=== PATIENT | female | born 1940 | race Caucasian/White ===

== ENCOUNTER → 2017-01-11 09:41 | Day surgery (SDC) | payer MEDICARE, OTHER ==
[~2017-01-11 09:41] MED LIST: Acetaminophen TAB* 325 MG PO PRN; Buffered Lidocaine 1% SYRIN* 3 ML/SYR SYRINGE INTRADERM ONE; Cyclopentolate 1% OPTH.SOL* 2 ML BTL ONE; Flurbiprofen 0.03% OPTH.SOL* 2.5 ML BTL ONE; Lidocaine 1% MPF* 2 ML VIAL ONE; Lidocaine 2% EPI 1:200000 MPF* 20 ML VIAL ONE; Midazolam* 1 MG/ML 2 ML VIAL (2 MG) ONE; Neomycin/Polymy/Dex OPTH.SUSP* MAXITROL 0.1% 5 ML ONE; Phenylephrine 2.5% OPTH.SOL* 2 ML BTL ONE; Povidone Iodine 5% OPTH* 30 ML BTL ONE; Proparacaine 0.5% OPHTH.SOL* 15 ML BTL ONE; acetaZOLAMIDE TAB* 250 MG ONE
[2017-01-11 12:59] VITALS: BP 140/78
--- NOTE | 2017-01-12 00:19 | OP ---
DATE OF OPERATION: 01/11/17 [facility] DATE OF : 44 SURGEON: Yamil Swartz M.D. PREOPERATIVE DIAGNOSIS: Cataract, right eye. POSTOPERATIVE DIAGNOSIS: Cataract, right eye. OPERATIVE PROCEDURE: Phacoemulsification, right eye with IOL. DESCRIPTION OF PROCEDURE: The patient was brought to the operating room after being given 1/2% Alcaine with epinephrine drops in the preoperative area. The eye was prepped and draped in the usual sterile fashion. Sterile drape and eyelid speculum were placed. Again, topical 1/2% Alcaine with epinephrine was given. A paracentesis incision was made at the 9 o'clock position with the No.75 blade. Clear cornea incision 2.2 x 2.2-mm was created at the 12 o'clock position starting at the anterior limbus using the 2.2-mm keratome. The anterior chamber was irrigated with 0.4 mL of 1% non-preservative intracameral lidocaine and filled with DisCoVisc. A capsulorrhexis was completed using the cystotome and the Utrata forceps. Hydrodissection was performed with balanced salt solution. The lens nucleus was removed with the Phacoemulsification handpiece without incident. Cortex was removed with the irrigation-aspiration handpiece. The capsular bag was re-inflated using DisCoVisc and an [id number] 10- diopter implant was inserted with the shooter. The irrigation-aspiration handpiece was used to remove all residual DisCoVisc. The eye was refilled with balanced salt solution and the wound checked and found to be watertight. Topical Maxitrol drops were given. [id number]/[facility] #: [id number] [facility] [address] [facility]
== END | disposition home or self-care (01) ==
LOC: OREAST 09:41
PROVIDERS: ATTEND Specialist
DX: H25.811 Combined forms of age-related cataract, right eye (principal); Z79.82 Long term (current) use of aspirin
CPT/HCPCS: J2250; V2632

== ENCOUNTER 2017-07-26 15:51 | Emergency (ER) | payer MEDICARE, BC ==
[2017-07-26 16:06] VITALS: BP 132/81
[2017-07-26] MEDS ORDERED: DOXYcycline CAP(*) 100 MG PO ONE (16:38)
--- NOTE | 2017-07-26 16:45 | UC ---
General HPI - HPI Summary HPI Summary: Found tick today embedded in left upper back. tried to remove the tick but was only partially sucess full. No fever. No weakness. - History of Current Complaint Chief Complaint: Tao Stated Complaint: TICK BITE Time Seen by Provider: 07/26/17 16:26 Hx Obtained From: Patient Onset/Duration: Gradual Onset, Lasting Hours, Still Present Onset Severity: Mild Current Severity: Mild - Allergy/Home Medications Allergies/Adverse Reactions: Allergies Allergy/AdvReac Type Severity Reaction Status Date / Time Adhesive Tape Allergy Rash Verified 07/26/17 16:07 PMH/Surg Hx/FS Hx/Imm Hx Previously Healthy: Yes - Surgical History Surgical History: Yes Surgery Procedure, Year, and Place: RUPTURED APPENDIX. LENS IMPLANT- LEFT. RETINAL DETACHED RIGHT EYE - 1977, "3M [facility]" - NEEDS ORBIT XRAY TO SEE IF THERE IS ANY METAL. LEFT EYE SURGERY FOR MACULAR PUCKER. mastectomy left breast 2012. right trigger thumb - Family History Known Family History: Negative: Blood Disorder - Social History Occupation: Retired Lives: With Family Alcohol Use: None Substance Use Type: None Smoking Status (MU): Never Smoked Tobacco - Immunization History Most Recent Tetanus Shot: UTD Review of Systems Constitutional: Negative Skin: Rash - RIGHT UPPER BACK Eyes: Negative ENT: Negative Respiratory: Negative Cardiovascular: Negative Gastrointestinal: Negative Genitourinary: Negative Motor: Negative Neurovascular: Negative Musculoskeletal: Negative Neurological: Negative Is Patient Immunocompromised?: No All Other Systems Reviewed And Are Negative: Yes Physical Exam Triage Information Reviewed: Yes Appearance: Well-Appearing, No Pain Distress, Well-Nourished Vital Signs: Initial Vital Signs Temp 97.6 F 07/26/17 16:03 Pulse 76 07/26/17 16:03 Resp 12 07/26/17 16:03 BP 132/81 07/26/17 16:03 Pulse Ox 99 07/26/17 16:03 Vital Signs Reviewed: Yes Eye Exam: Normal ENT Exam: Normal ENT: Positive: Normal ENT inspection, TMs normal Dental Exam: Normal Neck exam: Normal Neck: Positive: Supple, Nontender, No Lymphadenopathy Respiratory Exam: Normal Respiratory: Positive: Chest non-tender, Lungs clear, Normal breath sounds, No respiratory distress Cardiovascular Exam: Normal Cardiovascular: Positive: RRR, No Murmur, Pulses Normal Abdominal Exam: Normal Musculoskeletal Exam: Normal Neurological Exam: Normal Psychological Exam: Normal Skin: Positive: Other - PATRIAL TICK EMBEDDED IN RIGHT SUPERIOR BACK Procedures - Procedure Summary Procedure Summary: TICK FRAGMENTS REMOVED FROM RIGHT SUPERIOR BACK WITH SPLINTER FORCEPS Course/Dx - Differential Dx - Multi-Symptom Differential Diagnoses: Other - TICK Provider Diagnoses: TICK REMOVAL WITH PROPHYLAXIS Discharge - Discharge Plan Condition: Stable Disposition: HOME Patient Education Materials: Tick Bite (ED) Referrals: Jessica Youngblood MD [Primary Care Provider] - Images Front/Back of Body, Lg ([place]): 1 - TICK HERE
== END 2017-07-26 16:46 | disposition home or self-care (01) ==
LOC: UCEAST 15:51
DX: S20.462A Insect bite (nonvenomous) of left back wall of thorax, initial encounter (principal); W57.XXXA Bitten or stung by nonvenomous insect and other nonvenomous arthropods, initial encounter; Y92.9 Unspecified place or not applicable; Z91.048 Other nonmedicinal substance allergy status
CPT/HCPCS: 99212; A9270-GY; G0463

== ENCOUNTER 2017-08-31 12:21 | Day surgery (SDC) | payer MEDICARE, BC ==
[~2017-08-31 12:21] MED LIST changes: -Acetaminophen TAB* 325 MG PO PRN; +Buffered Lidocaine 0.9% SYRIN* 5 ML/SYR SYRINGE INTRADERM ONE; -Buffered Lidocaine 1% SYRIN* 3 ML/SYR SYRINGE INTRADERM ONE; -Cyclopentolate 1% OPTH.SOL* 2 ML BTL ONE; +DiMENhydriNATE IV* 50 MG/ML VIAL IV PUSH PRN; +Famotidine IV* 10 MG/ML 2 ML (20 mg) IV ONE; -Flurbiprofen 0.03% OPTH.SOL* 2.5 ML BTL ONE; -Lidocaine 1% MPF* 2 ML VIAL ONE; -Lidocaine 2% EPI 1:200000 MPF* 20 ML VIAL ONE; -Midazolam* 1 MG/ML 2 ML VIAL (2 MG) ONE; +Morphine INJ* 2 MG/ML 1 ML CARPUJECT IV PRN; -Neomycin/Polymy/Dex OPTH.SUSP* MAXITROL 0.1% 5 ML ONE; +PROCHLORPERAZINE INJ 5 MG/ML 2 ML VIAL IV PRN; -Phenylephrine 2.5% OPTH.SOL* 2 ML BTL ONE; -Povidone Iodine 5% OPTH* 30 ML BTL ONE; -Proparacaine 0.5% OPHTH.SOL* 15 ML BTL ONE; -acetaZOLAMIDE TAB* 250 MG ONE; +fentaNYL* 50 MCG/ML 2 ML VIAL (100 MCG VIAL) IV PRN; +oxyCODONE/Acetamin 5/325 MG* TAB PO PRN
[2017-08-31] MEDS ORDERED: ceFAZolin 2 GM PREMIX (*) 2 GM/50 ML BAG IVPB ONE (12:52)
[2017-08-31] MEDS ORDERED: Famotidine IV* 10 MG/ML 2 ML (20 mg) ONE (12:52)
[2017-08-31] MEDS ORDERED: Buffered Lidocaine 0.9% SYRIN* 5 ML/SYR SYRINGE ONE (12:52)
[2017-08-31] MEDS ORDERED: KETAMINE HCL* 50 MG/ML 10 ML VIAL ONE (13:27)
[2017-08-31] MEDS ORDERED: Midazolam* 1 MG/ML 2 ML VIAL (2 MG) ONE (13:27)
[2017-08-31] MEDS ORDERED: fentaNYL* 50 MCG/ML 2 ML VIAL (100 MCG VIAL) ONE (13:27)
[2017-08-31] MEDS ORDERED: Bupivacaine 0.5% SDV PF* 30 ML VIAL ONE (14:15)
[2017-08-31] MEDS ORDERED: Propofol* 10 MG/ML 20 ML BTL IV PUSH ONE (15:56)
[2017-08-31] MEDS ORDERED: Lidocaine 2% PF * 5 ML VIAL ONE (15:56)
[2017-08-31] MEDS ORDERED: Dexamethasone IV* 4 MG/ML 1 ML (4 MG) ONE (15:57)
[2017-08-31] MEDS ORDERED: Ondansetron INJ* 2 MG/ML VIAL ONE (15:57)
[2017-08-31] MEDS ORDERED: Nitroglycerin 2% OINT* 1 GM PAK TOPICAL ONE (16:00)
[2017-08-31] MEDS ORDERED: hydrALAZINE IV* 20 MG/ML VIAL IV SLOW PU ONE (16:30)
[2017-08-31] MEDS ORDERED: hydrALAZINE IV* 20 MG/ML VIAL ONE (16:30)
[2017-08-31 18:02] VITALS: BP 149/86
--- NOTE | 2017-09-01 06:59 | OP ---
DATE OF OPERATION: 08/31/17 [facility] DATE OF : 44 SURGEON: Abdirahman Lemus MD PRISON GUARD SUPERVISOR: JOSE Morel ANESTHESIOLOGIST: Juan Mancera MD ANESTHESIA: General endotracheal anesthesia. PRE-OP DIAGNOSES: 1. Right second metatarsophalangeal joint dislocation. 2. Right third metatarsophalangeal joint dislocation. 3. Right fourth metatarsal fracture. POST-OP DIAGNOSES: 1. Right second metatarsophalangeal joint dislocation. 2. Right third metatarsophalangeal joint dislocation. 3. Right fourth metatarsal fracture. 4. Right second metatarsal fracture. OPERATIVE PROCEDURE: 1. Right second MTP joint dislocation, open reduction and internal fixation. 2. Right third MTP joint dislocation, open reduction and internal fixation. 3. Right second metatarsal fracture, open reduction and internal fixation. 4. Right fourth metatarsal closed treatment. INDICATIONS: Ms. Woodruff is a very pleasant 76-year-old woman, who injured herself in [facility] about 1 month ago on vacation. She does have neuropathy so the pain was never that bad, but she did have significant swelling and bruising. When she came back to the [facility], she has been having low- level 2/10 pain persistently in the right forefoot along with swelling and bruising. She did see her primary care physician, who referred her over to me when she was found to have dislocations and fractures in the right forefoot. Ms. Woodruff and I had a very long discussion regarding this diagnosis and her treatment options including the long discussion about nonoperative and operative treatment options. We did discuss the nature and risks of surgery in careful detail in the office as well as in the preoperative holding area. This discussion included the risks of surgery, which included but were not limited to , infection, recurrent dislocation, wound problems, nerve injury, neuroma, RSD, persistent problems, need for further surgery, loss of a toe, and even remote catastrophic complication such as loss of limb or . IMPLANTS: Two 0.062 K-wires. TOURNIQUET TIME: Less than 1 hour with a well-padded ankle Esmarch tourniquet. SPECIMENS: None. ESTIMATED BLOOD LOSS: Minimal. COMPLICATIONS: None. STATUS: Stable from the operating room to the recovery room and then home. DESCRIPTION OF PROCEDURE: The patient was seen in the preoperative holding unit and informed written consent was obtained. The appropriate extremity was marked. The patient was then brought to the operating room and carefully positioned on the operating room table. Anesthesia was induced. An attempt was made at closed reduction of the MTP joint dislocations and I used fluoroscopy to assist in this. Unfortunately, as I expected, given the chronicity of the dislocations, I was unavailable to perform a closed reduction. Therefore, the decision was made to move forward with the open reduction. At this time, a chlorhexidine based pre-scrub was performed followed by a standard ChloraPrep and draped in sterile fashion. A surgical safety pause was then conducted in which we confirmed the appropriate patient, extremity, planned procedure, availability of equipment, indication, and administration of prophylactic antibiotics, and DVT prophylaxis in the form of compression boot on the nonsurgical extremity. We began by placing an ankle Esmarch tourniquet. Then, an incision was made overlying the second and third metatarsal shaft up to the MTP joints. I dissected down to expose the second and third MTP joints. In the second MTP joint, it was noticed that it was actually a fracture of the second metatarsal head. There was some gouging of the second metatarsal head cartilage as well likely from the dislocation and persistent dislocation for a month. The third metatarsal head was intact. On the third metatarsal, however, the extensor tendons were contracted and preventing reduction, so the EDL was lengthened in a Z lengthening fashion. The EDB was incised. At this time, we were able to get both joints reduced and a 0.062 K-wire was placed into the second toe and then third toe. At the second MTP joint, the K-wire was used to catch the fractured metatarsal head and then pass into the second metatarsal shaft thus keeping both the MTP joint reduced as well as fixing the metatarsal fracture in place. The third MTP joint was then reduced and the pin was placed into the metatarsal shaft as well. Fluoroscopy was utilized to confirm reduction as well as direct visualization. The tourniquet was then let down to make sure that blood flow was maintained to the toes. Meticulous hemostasis was performed. The third toe pinked right up, but the second toe was little sluggish, so some nitro paste was placed on to the second toe, at which point it pinked up quite quickly. The wound was copiously irrigated and then closed in a layered fashion utilizing 3-0 Monocryl and 3-0 nylon. At the end of the case, all the nitro paste had been removed and both of the toes were pink and had good capillary refill. The wires were bent and cut and Xeroform was placed around the base as well as taped flags on the end. A sterile dressing was then applied. All needle and sponge counts were correct at the end of the case. The patient was awakened from anesthesia and transferred to the recovery room in stable condition. There were no complications. ATTESTATION: I attest that I was present, scrubbed, and performed the entire procedure myself. POSTOPERATIVE PLAN: Haley was placed into a postop shoe and will remain heel weightbearing for anticipated duration of 6 weeks in the postoperative shoe. Followup will be in 2 weeks for likely suture removal and Steri-Strip application. [id number]/[facility] #: [id number] [facility]
--- NOTE | 2017-09-01 10:55 | RAD ---
INDICATION: right foot ORIF, M 79.671 COMPARISONS: August 24, 2017 TECHNIQUE: Fluoroscopy was provided for a surgical procedure. Total fluoroscopy time is: 16.2 seconds FINDINGS: Spot images of the straight percutaneous fixation of the second and third rays IMPRESSION: FLUOROSCOPY WAS PROVIDED FOR A SURGICAL PROCEDURE CPT II Codes: 6045F
== END 2017-08-31 18:03 | disposition home or self-care (01) ==
LOC: OR 12:21
PROVIDERS: ATTEND Orthopaedic Surgery
DX: S93.124A Dislocation of metatarsophalangeal joint of right lesser toe(s), initial encounter (principal); S92.341A Displaced fracture of fourth metatarsal bone, right foot, initial encounter for closed fracture; S92.321A Displaced fracture of second metatarsal bone, right foot, initial encounter for closed fracture; W18.39XA Other fall on same level, initial encounter; Y93.01 Activity, walking, marching and hiking; Y92.9 Unspecified place or not applicable; G62.9 Polyneuropathy, unspecified; G40.909 Epilepsy, unspecified, not intractable, without status epilepticus; I48.92 Unspecified atrial flutter; Z79.82 Long term (current) use of aspirin
CPT/HCPCS: 36415; 76000; 84443; A9270-GY; C1776; J0360; J0690; J1100; J2250; J2405; J2704; J3010